=== PATIENT | female | born 1985 | race Caucasian/White ===

== ENCOUNTER 2020-07-28 16:04 | Emergency (ER) | payer SELFPAY ==
--- NOTE | 2020-07-28 16:49 | EDM.PDOC ---
ED HPI GENERAL MEDICAL PROBLEM - General Chief Complaint: Respiratory Problem Stated Complaint: CONGESTED/SINUS PRESSURE/SORE THROAT/HEAD ACHE Time Seen by Provider: 07/28/20 16:20 Source of Information: Reports: Patient, RN Notes Reviewed History Limitations: Reports: No Limitations - History of Present Illness INITIAL COMMENTS - FREE TEXT/NARRATIVE: Patient is a 35-year-old female who presents to the ED for her cold-like symptoms. Patient notes that these have been present for around 1 week, she is complaining of some sinus congestion, and pressure that seem to radiate to the back of her head/neck area. She states that she has a history of migraines, but this did not feel similar to this. She does also have headache or head pressure. She states that she was okay a few days ago, but this a.m. seem to worsen. She is also complaining of a sore throat, for which she states it feels like razor blades. She has not lost her sense of taste or smell. She notes that she has had no fevers or chills, she has had a mild cough but no shortness of breath, or any body aches. She does not think she has been around anyone that been sick. She does have a history of influenza 5 years ago. On a side note, patient states that she is feeling symptoms of as well, breast tenderness, and some nausea. She states she is taking a few [id number] test and these have all been negative. She states that her last menstrual period was at the last end of May and this was normal for her. Throat Pain Score (Numeric/FACES): 6 - Related Data Allergies Allergy/AdvReac Type Severity Reaction Status Date / Time No Known Allergies Allergy Verified 07/28/20 16:19 Home Meds: Home Meds . [No Known Home Meds] 07/28/20 [History] Past Medical History P[place] History: Reports: Therapeutic Psychiatric History: Reports: Anxiety Social & Family History - Tobacco Use Tobacco Use Status *Q: Never Tobacco User ED ROS GENERAL - Review of Systems Review Of Systems: Comprehensive ROS is negative, except as noted in HPI. ED EXAM, GENERAL - Physical Exam Exam: See Below Exam Limited By: No Limitations General Appearance: Alert, WD/WN, No Apparent Distress Eye Exam: Bilateral Eye: Conjunctival Injection, EOMI, Normal Inspection, PERRL Nose: Normal Inspection Throat/Mouth: Normal Inspection, Normal Lips, Normal Teeth, Normal Gums, Normal Oropharynx, Normal Voice, No Airway Compromise Head: Atraumatic, Normocephalic Neck: Normal Inspection, Supple, Non-Tender, Full Range of Motion Respiratory/Chest: No Respiratory Distress, Lungs Clear, Normal Breath Sounds, No Accessory Muscle Use, Chest Non-Tender Cardiovascular: Normal Peripheral Pulses, Regular Rate, Rhythm, No Murmur Peripheral Pulses: 2+: Radial (L), Radial (R) Extremities: Normal Inspection, Normal Capillary Refill Neurological: Alert, Oriented, Normal Cognition, No Motor/Sensory Deficits Psychiatric: Normal Affect, Normal Mood Skin Exam: Warm, Dry, Intact, Normal Color, No Rash Course - Vital Signs Last Recorded V/S: Last Vital Signs Temp 97.5 F 07/28/20 16:19 Pulse 89 07/28/20 16:19 Resp 16 07/28/20 16:19 BP 143/84 H 07/28/20 16:19 Pulse Ox 100 07/28/20 16:19 - Orders/Labs/Meds Orders: Active Orders 24 hr Category Date Time Status CORONAVIRUS COVID-19 PCR PHL Stat Lab 07/28/20 16:42 Ordered CULTURE STREP A CONFIRMATION [RM] Stat Lab 07/28/20 16:58 Results STREP SCRN A RAPID W CULT CONF [RM] Stat Lab 07/28/20 16:42 Ordered Isolation [COMM] Routine Oth 07/28/20 16:42 Ordered Labs: Laboratory Tests 07/28/20 Range/Units 16:55 HCG, Qual Negative (NEGATIVE) Meds: Medications Discontinued Medications Generic Name Dose Route Start Last Admin Trade Name Pramod PRN Reason Stop Dose Admin Acetaminophen 650 mg 07/28/20 17:15 07/28/20 17:31 Tylenol PO 07/28/20 17:16 650 mg NOW ONE Administration - Re-Assessments/Exams Free Text/Narrative Re-Assessment/Exam: 07/28/20 16:48 Pt presents to the ED for her cold like symptoms. I have ordered an Influenza, Strep and COVID-19 state send out swab, along with a serum HCG for today's purposes. Departure - Departure Time of Disposition: 17:44 Disposition: Home, Self-Care 01 Condition: Good Clinical Impression: Viral respiratory illness - Discharge Information *PRESCRIPTION DRUG MONITORING PROGRAM REVIEWED*: No *COPY OF PRESCRIPTION DRUG MONITORING REPORT IN PATIENT MANIHS: No Instructions: Viral Respiratory Infection Referrals: PCP,None [Primary Care Provider] - Forms: ED Department Discharge, ED Return to Work/School Form Additional Instructions: You were seen in the ER today for ongoing and/or worsening respiratory symptoms. Your oxygen levels were great at 98% on room air. You were tested at today's visit for strep throat and influenza, both of these were negative. The strep throat test will be sent for culture, for confirmation you will be called if you should need a course of antibiotics. This will take 24 to 48 hours. Your blood test was negative at today's visit. At this time we did test you for COVID-19. We ask that you self-quarantine and limit your exposure to others until you receive your results from the state. You have been given a work note to reflect this. Swabs are sent from this facility on a daily basis, at 2:30 PM, you should expect up to 3-5 business days for positive or negative results. However you may receive results earlier than this. We are doing our best to call as soon as we get results from the [place] dept. of Health. Please try to increase your oral fluid intake, and eat multiple small meals throughout the day, to keep yourself healthy. You need to keep yourself nourished in order to fight off this disease. You can try a liquid diet like gatorade/powerade as well to get your electrolytes. You may take 500 mg Tylenol every hours 6 hours for pain/fever relief. Do not exceed 4000 mg Tylenol in a 24-hour time span. However, running a fever is your body's natural response to illness, and it allows the body to develop antibodies to disease, we are recommending trying to limit the use of Tylenol as much as possible to allow your body's natural immune response. Recommend you obtain a pulse oximeter and monitor your oxygen levels at home, you should place the monitor on your finger, and sit in a calm, quiet position f or a few minutes and then record the number that is on the screen. If this consistently below 90% on room air without movement, this would be cause for concern to come back to the hospital for further management of your COVID-19 disease. Sepsis Event Note (ED) - Evaluation Sepsis Screening Result: No Definite Risk - Focused Exam Vital Signs: Vital Signs Temp Pulse Resp BP Pulse Ox 07/28/20 16:19 97.5 F 89 16 143/84 H 100 - My Orders Last 24 Hours: My Active Orders 07/28/20 16:42 CORONAVIRUS COVID-19 PCR PHL Stat STREP SCRN A RAPID W CULT CONF [RM] Stat Isolation [COMM] Routine 07/28/20 16:58 CULTURE STREP A CONFIRMATION [RM] Stat - Assessment/Plan Last 24 Hours: My Active Orders 07/28/20 16:42 CORONAVIRUS COVID-19 PCR PHL Stat STREP SCRN A RAPID W CULT CONF [RM] Stat Isolation [COMM] Routine 07/28/20 16:58 CULTURE STREP A CONFIRMATION [RM] Stat
[2020-07-28] MEDS ORDERED: Acetaminophen 325 MG Tab PO ONE (17:15)
== END 2020-07-28 17:47 | disposition home or self-care (01) ==
LOC: JD.ED 16:04
DX: B34.9 Viral infection, unspecified (principal)
CPT/HCPCS: 36415; 84703; 87081; 87430; 87804; 99283; A9270; 99282; U0002